=== PATIENT | female | born 1980 | race Caucasian/White ===

== ENCOUNTER → 2017-12-03 08:18 | Outpatient (REF) | payer OTHER, SELFPAY ==
[2017-12-03 18:23] LABS: Amphetamine/Metha Screen,Urine Negative ng/mL (<1000); Barbiturates Screen,Urine Negative ng/mL (<200); Benzodiazepines Screen,Urine Negative ng/mL (200); Cannabinoid Screen,Urine Positive ng/mL (<50); Cocaine Screen,Urine Negative ng/g (<300); Methadone Screen,Urine Negative ng/mL (<300); Opiate Screen,Urine Negative ng/mL (<300); Phencyclidine Screen,Urine Negative ng/mL (<25)
== END ==
LOC: LAB 08:18
PROVIDERS: Visit Provider Nurse Practitioner Family
DX: Z79.899 Other long term (current) drug therapy (principal)
CPT/HCPCS: 80305

== ENCOUNTER → 2018-03-10 15:18 | Outpatient (REF) | payer OTHER, SELFPAY ==
[2018-03-10 18:48] LABS: Amphetamine/Metha Screen,Urine Negative ng/mL (<1000); Barbiturates Screen,Urine Negative ng/mL (<200); Benzodiazepines Screen,Urine Negative ng/mL (<200); Cannabinoid Screen,Urine Negative ng/mL (<50); Cocaine Screen,Urine Negative ng/mL (<300); Methadone Screen,Urine Negative ng/mL (<300); Opiate Screen,Urine Negative ng/mL (<300); Phencyclidine Screen,Urine Negative ng/mL (<25)
== END ==
LOC: LAB 15:18
PROVIDERS: Visit Provider Nurse Practitioner Family
DX: Z79.899 Other long term (current) drug therapy (principal)
CPT/HCPCS: 80305

== ENCOUNTER → 2019-01-12 13:47 | Outpatient (CLI) | payer BC, OTHER, SELFPAY ==
[2019-01-12 14:38] LABS: Amphetamine/Metha Screen,Urine Negative ng/mL (<1000); Barbiturates Screen,Urine Negative ng/mL (<200); Benzodiazepines Screen,Urine Negative ng/mL (<200); Cannabinoid Screen,Urine Negative ng/mL (<50); Cocaine Screen,Urine Negative ng/mL (<300); Methadone Screen,Urine Negative ng/mL (<300); Opiate Screen,Urine Negative ng/mL (<300); Phencyclidine Screen,Urine Negative ng/mL (<25)
== END ==
PROVIDERS: Visit Provider Nurse Practitioner Family
DX: Z79.899 Other long term (current) drug therapy (principal)
CPT/HCPCS: 80305

== ENCOUNTER → 2019-07-06 13:40 | Outpatient (CLI) | payer BC, OTHER, SELFPAY ==
[2019-07-06 15:41] LABS: Amphetamine/Metha Screen,Urine Negative ng/mL (<1000); Barbiturates Screen,Urine Negative ng/mL (<200); Benzodiazepines Screen,Urine Negative ng/mL (<200); Cannabinoid Screen,Urine Negative ng/mL (<50); Cocaine Screen,Urine Negative ng/mL (<300); Methadone Screen,Urine Negative ng/mL (<300); Opiate Screen,Urine Negative ng/mL (<300); Phencyclidine Screen,Urine Negative ng/mL (<25)
== END ==
PROVIDERS: Visit Provider Nurse Practitioner Family
DX: Z79.899 Other long term (current) drug therapy (principal)
CPT/HCPCS: 80305

== ENCOUNTER → 2020-04-29 14:29 | Outpatient (CLI) | payer MEDICAID, SELFPAY ==
--- NOTE | 2020-04-29 14:30 | US_ITS ---
PROCEDURE: US TRANSVAGINAL CLINICAL INDICATION: US T/V- Menorrhagia COMPARISON: No exams were available for comparison FINDINGS: UTERUS: 8cm x 5cmx 5cm with a combined endometrial thickness of 8.1mm LEFT OVARY: [id number] with a volume of 3.7ml. RIGHT OVARY: [id number] with a volume of 10.4ml. The uterus is retroverted. There is a heterogeneous area of echogenicity in the fundus of the uterus at 2.4 x 1.8 by 2.9 cm suggesting a uterine fibroid. There is a 2 cm right ovarian cyst which appears simple. There are smaller bilateral ovarian follicles noted. Bilateral ovarian blood flow is present. Nabothian cysts noted. IMPRESSION: Retroverted uterus with 2.9 cm fibroid 2 cm right ovarian cyst Dictated by: Travis Clark MD 04/29/2020 17:43 Travis Clark MD in OV 04/29/2020 17:43
== END ==
PROVIDERS: Visit Provider Obstetrics & Gynecology
DX: N92.0 Excessive and frequent menstruation with regular cycle (principal)
CPT/HCPCS: 76830

== ENCOUNTER → 2020-06-22 07:16 | Outpatient (CLI) | payer MEDICAID, SELFPAY ==
[2020-06-22 07:48] LABS: Basophils % 0.5 % (0.1-2.0); Eosinophils # 0.2 K/mm3 (0.0-0.4); Eosinophils % 2.3 % (0.1-12.0); Hematocrit 41.9 % (37.0-47.0); Hemoglobin 13.7 g/dL (12.2-16.2); Lymphocytes # 2.9 K/mm3 (0.7-4.5); Lymphocytes % 32.8 % (10-50); Mean Corpuscular HGB Conc 32.7 g/dL (31.8-35.4); Mean Corpuscular Hemoglobin 29.4 pg (27.0-31.2); Mean Platelet Volume 10.1 fl (7.4-10.4); Monocytes # 0.4 K/mm3 (0.1-1.0); Monocytes % 4.3 % (1.7-9.3); Neutrophils # 5.3 K/mm3 (1.8-7.8); Neutrophils % 60.2 % (37.0-80.0); Platelet Count 195 K/mm3 (142-424); Red Blood Count 4.65 M/mm3 (4.20-5.40); Red Cell Distribution Width 14.2 % (11.5-17.5); White Blood Count 8.8 K/mm3 (4.8-10.8)
[2020-06-22 08:39] LABS: Chloride 106 mmol/L (98-107); Potassium 3.8 mmoL/L (3.5-5.1); Sodium 138 mmol/L (136-145)
[2020-06-22 08:42] LABS: Alanine Aminotransferase 15 U/L (12-78); Albumin/Globulin Ratio 1.7 (1.1-1.8); Alkaline Phosphatase 104 U/L (38-126); Anion Gap 11.8 mEq/L (5-15); Aspartate Amino Transferase 25 U/L (14-36); Bilirubin,Total 0.3 mg/dl (0.2-1.3); Blood Urea Nitrogen 3 mg/dl (7-17); Carbon Dioxide 24 mmol/L (22.0-30.0); Estimated Glomerular Filt Rate 137 ml/min (>60); GFR (African American) 166 ML/MIN (>60); Globulin 2.3 g/dL (1.3-3.2); Total Protein,Serum 6.3 g/dl (6.3-8.2)
[2020-06-22 08:43] LABS: Glucose 98 mg/dl (74-100)
[2020-06-22 08:58] LABS: HCG Qualitative, Serum Negative (Negative)
[2020-06-22 09:18] LABS: Coronavirus 19 IgG Antibody Positive (Negative); Coronavirus 19 IgM Antibody Negative (Negative)
== END ==
PROVIDERS: Visit Provider Obstetrics & Gynecology
DX: Z01.818 Encounter for other preprocedural examination (principal); Z03.818 Encounter for observation for suspected exposure to other biological agents ruled out; N92.0 Excessive and frequent menstruation with regular cycle; N94.6 Dysmenorrhea, unspecified; N93.8 Other specified abnormal uterine and vaginal bleeding; Z98.51 Tubal ligation status
CPT/HCPCS: 36415; 80053; 84703; 85025; 86328

== ENCOUNTER 2020-06-24 11:13 | Day surgery (SDC) | payer MEDICAID, SELFPAY ==
[2020-06-23 13:50] VITALS: BMI 22.2
[2020-06-24] VITALS (10 sets, daily range): BP systolic 100–119; BP diastolic 60–75; PULSE 55–72; RESP 16–18; TEMP 36.6–43; O2SAT 92–100
--- NOTE | 2020-06-24 14:42 | HMH.ANESCL ---
[facility] Anesthesia Checklist - Patient Identification Patient Identification: Arm Band - Structural Data Admitted From: Home Planned Operative Procedure/s: Hysteroscopy, D&C novasure ablation Consent for Planned Operative Procedure(s) Verified: Yes Verified Documents: Surgical Consent, History and Physical - NPO Status Verified Time NPO: 00:00 - Additional verifications Anesthesia Reactions: No Hx Blood Transfusions: No Blood Transfusion Reaction: No - Airway Assessment C-Spine Mobility Assessed: Yes (mp2) TMJ Mobility Assessed: Yes Dentition: Good Dentition - Neurological Assessment Level of Consciousness: Awake, Alert - Anesthesia Plan Anesthesia Risk discussed: Yes Anesthesia Plan: Verified ASA Class: II Anesthesia Type: General [facility] History I have reviewed the patient's past medical history: Yes Medical History: Reports:: Depression Denies:: Cancer, Diabetes Mellitus Type 1, Diabetes Mellitus Type 2, Internal Pacemaker, MRSA, Seizures *Have you ever received a pneumonia vaccine?: No *Have you received a flu vaccine this season?: Yes Other Medical History: Reports: Arthritis, Other. Denies: Blood Transfusion Reaction Anesthesia experience/problems:: nac Other Surgeries: Yes: Tubal Ligation, Other. No: Pacemaker Amputation: No Fractures: Yes - *Social History Smoking Status: Current every day smoker Tobacco Type: cigarettes # Packs/Day (cigarettes): 1 Alcohol Intake: never Substance Use Type: opiates, former substance user *Occupational Status:: employed Housing: house Household Members: children *Travel in the last 8 weeks: None - Psychiatric History Pschychiatric History:: Reports:: Depression Family Hx:: No significant family history
--- NOTE | 2020-06-24 15:30 | HMH.ANESI ---
[facility] Anesthesia Record Part I Intake, IV Amount: 1,000 Estimated blood loss (mL): 25 Urine output (mL): 150 Blood Pressure: 111/65 SaO2: 100 Pulse Rate: 72 Respiratory Rate: 16 Temperature: 98.1 F Patient is:: Drowsy, Stable Stable to PACU at:: 15:20
--- NOTE | 2020-06-24 16:54 | P.OP_ITS ---
Date of procedure: 06/24/20 Pre-op Diagnosis:: Heavy menstrual bleeding, dysfunctional uterine bleeding, severe dysmenorrhea Post-op Diagnosis:: same Procedure performed:: D & C Hysteroscopy Novasure Endometrial Ablation Surgeon:: Katie Cochran MD MANAGER PRIVATE:: Zane Pichardo Anesthesia: GETA Estimated blood loss (mL): 10 Operative findings:: grossly normal uterine cavity Operative note:: The patient was taken to the OR where general anesthesia was administered without difficulty. She was prepped/draped in the normal sterile fashion in supine position. The cervix was dilated until hysteroscope could be accomodated. The hysteroscope was introduced through the cervix into the uterus and the cavity surveyed. No fibroids or polyps were observed within the cavity; sharp curettage was performed and the specimen sent for pathology. The Novasure device was introduced into the uterus. The cavity length was measured at 5cm and width at 4.5cm, and the cavity assessment was successful. The Novasure was deployed and the endometrial ablation was completed in 69 seconds, and without complication. All instruments were removed from her vagina, she was awakened from anesthesia and taken to PACU in stable condition. Condition: stable Disposition: PACU Specimens:: endometrial curettings Complications:: none
[2020-07-01 14:07] VITALS: BP 106/70; PULSE 66; TEMP 36.6
--- NOTE | 2020-07-01 14:07 | P.PN_ITS ---
[facility] Anesthesia Record Part II Discharge Time: 15:50 Destination: [facility] PACU nurse assessment reviewed?: Yes Patient Condition:: Good Anesthesia Complications:: None Swallowing reflex intact?: Yes Cyanosis?: No Blood Pressure: 106/70 Pulse Rate: 66 Temperature: 97.9 F Mental Status: Alert & Oriented Pain level:: 0 Nausea and/or vomitting:: None Intake, IV Amount: 1,200
== END 2020-06-24 16:21 | disposition home or self-care (01) ==
LOC: OR 11:25
PROVIDERS: PCP Emergency Medicine; Visit Provider Obstetrics & Gynecology
PROC: 0U5B8ZZ Destruction of Endometrium, Via Natural or Artificial Opening Endoscopic (ICD-10-PCS; CPT 58563; principal; 2020-06-24 13:00)
DX: N94.6 Dysmenorrhea, unspecified (principal); N93.8 Other specified abnormal uterine and vaginal bleeding; Z98.51 Tubal ligation status; F32.9 Major depressive disorder, single episode, unspecified; M19.90 Unspecified osteoarthritis, unspecified site; Z72.0 Tobacco use; F19.11 Other psychoactive substance abuse, in remission
CPT/HCPCS: 58563; 96374; J2405

== ENCOUNTER → 2021-04-24 11:07 | Outpatient (CLI) | payer BC, MEDICAID, SELFPAY | PROVIDERS: PCP Emergency Medicine; Visit Provider Nurse Practitioner | DX: Z20.822 Contact with and (suspected) exposure to COVID-19 (principal) | CPT/HCPCS: C9803; U0003; U0005 ==

== ENCOUNTER → 2021-07-27 10:55 | Outpatient (CLI) | payer BC, MEDICAID, SELFPAY | PROVIDERS: Visit Provider Nurse Practitioner | DX: U07.1 COVID-19 (principal) | CPT/HCPCS: C9803; U0003; U0005 ==

== ENCOUNTER 2024-11-19 15:14 | Outpatient (CLI) | payer MEDICAID, SELFPAY ==
[2024-11-19 18:51] LABS: Basophils # 0.1 K/mm3 (0-0.2); Basophils % 0.7 % (0.1-2.0); Eosinophils # 0.2 Kmm3 (0.0-0.4); Eosinophils % 2.5 % (0.1-12.0); Hematocrit 39.7 % (37.0-47.0); Hemoglobin 13.5 g/dL (12.2-16.2); Immature Granulocytes # 0.01 10^3uL; Immature Granulocytes % 0.1 %; Lymphocytes # 1.9 K/mm3 (0.7-4.5); Lymphocytes % 25.9 % (10-50); Mean Corpuscular Hemoglobin 32.6 pg (27.0-31.2); Mean Corpuscular Volume 95.9 fl (81-99); Mean Platelet Volume 11.4 fl (7.4-10.4); Monocytes # 0.4 K/mm3 (0.1-1.0); Monocytes % 5.7 % (1.7-9.3); Neutrophils # 4.8 K/mm3 (1.8-7.8); Neutrophils % 65.1 % (37.0-80.0); Nucleated Red Blood Cells # 0 10^3/uL; Nucleated Red Blood Cells % 0 %; Platelet Count 221 K/mm3 (142-424); Red Blood Count 4.14 M/mm3 (4.20-5.40); Red Cell Distribution Width 13.4 % (11.5-17.5); Red Cell Distribution Width-SD 47.6 fL; White Blood Count 7.3 K/mm3 (4.8-10.8)
[2024-11-19 19:23] LABS: Alanine Aminotransferase 13 U/L (12-78); Albumin Level 3.9 g/dl (3.5-5.0); Albumin/Globulin Ratio 1.9 (1.1-1.8); Alkaline Phosphatase 114 U/L (38-126); Anion Gap 3.5 mEq/L (5-15); Aspartate Amino Transferase 24 U/L (14-36); Bilirubin,Total 0.4 mg/dl (0.2-1.3); Blood Urea Nitrogen 6 mg/dl (7-17); Calcium 8.8 mg/dl (8.4-10.2); Carbon Dioxide 31 mmol/L (22.0-30.0); Chloride 105 mmol/L (98-107); Estimated Glomerular Filt Rate 109 ml/min (>60); GFR (African American) 132 ML/MIN (>60); Globulin 2.1 g/dL (1.3-3.2); Glucose 83 mg/dl (74-100); Potassium 3.5 mmoL/L (3.5-5.1); Sodium 136 mmol/L (136-145)
== END 2024-11-19 23:59 | disposition home or self-care (01) ==
LOC: LAB.DROPOF 11-20 13:16
PROVIDERS: PCP Family Medicine; Visit Provider Family Medicine
DX: M06.041 Rheumatoid arthritis without rheumatoid factor, right hand (principal)
CPT/HCPCS: 80053; 85025

== ENCOUNTER 2025-05-05 15:34 | Outpatient (CLI) | payer MEDICAID, SELFPAY ==
--- OUTSIDE RECORDS SUMMARY | 2025-05-05 15:40 | XMS_ITS | Clinical Summary ---
[facility] [address] [place] [address] Care Team Providers Care Web Mobile Designer Name Role Phone Randa Garza MD Primary Care Provider [phone] Allergies No known active allergies Medications Zubsolv 5.7-1.4 MG sublingual tablet 12/19/2022 A ctive escitalopram (LEXAPRO) 20 MG tablet 12/13/2022 Active hydrOXYzine (ATARAX) 25 MG tablet 12/13/2022 Active promethazine (PHENERGAN) 25 MG tablet 09/17/2022 Active methotrexate 2.5 MG tablet 12/14/2022 Active gabapentin (NEURONTIN) 600 MG tablet 12/17/2022 Active ibuprofen (ADVIL,MOTRIN) 600 MG tablet 12/16/2022 Active Active Problems Problem Noted Date Diagnosed Date Left elbow pain 01/11/2023 DJD (degenerative joint disease) 01/11/2023 Rheumatoid arthritis involvi ng multiple sites with positive rheumatoid factor 01/11/2023 Social History Tobacco Use Types Packs/Day Years Used Date Smoking Tobacco: Every Day Cigarettes 1 15 Electronic Cigarette Star marjorie: 2020 Smokeless Tobacco: Never Tobacco Cessation:Ready to Q uit: Not Asked; Counseling Given: Not Answered Abuse Screen Answer Date Recorded Unsafe at Home or Work/School Not on file Feels Threatened by Someone? Not on file 03/2023 Does Anyone Keep You from Co ntacting Others or Doint Things Outside the Home? Not on file 04/22/2023 Physical Sign of Abuse Present Not on file 1 Housing Stability Answer Date Recorded Current Living Arrangements Not on file 10/0 03/2023 Potentially Unsafe Housing Conditions Not on cristal e 04/22/2023 Family and Community Support Answer Kofi e Recorded Help with Day-to-Day Activities Not on file 04/22/2023 Lonely or Isolated Not on file 04/22/2023 Employment Answer Date Recorded Do you want help finding or keeping work or a ghanshyam b? Not on file 04/22/2023 Disabilities Answer Date Recorded Concentrating, Remembering, or Making Decisions Difficulty Not on file 04/22/2023 Doing Errands Independently Difficulty Not on fi le 04/22/2023 Education Answer Date Recorded Help with school or training? Not on file Preferred Language Not on file 04/22/2023 Comments No Sex and Gender Information Value Date Recorded Sex Assigned at Not on file Legal Sex Female 8:27 PM EDT Gender Identity Not on file Sexual Orientation Not on file Last Filed Vital Signs Vital Sign Reading Time Taken Comments Blood Pressure 116/82 01/11/2023 9:59 AM EDT Pulse - - Temperature - - Respiratory Rate - - Oxygen Saturation - - Inhaled Oxygen Concentration - - Weight 56.2 kg (124 lb) 01/11/2023 9:59 AM EDT Height 156.2 cm (5' 1.5 ) 01/11/2023 9:59 AM EDT Body Mass Index 23.05 01/11/2023 9:59 AM EDT Plan of Treatment Health Maintenance Due Date Last Done Comments Annual Gynecologic Pelvic and Breast Exam 1981 Pneumococcal Vaccine 0-49 (1 of 2 - PCV) 2000 PAP SMEAR 2002 TDAP/TD VACCINES (2 - Tdap) 09/18/2006 09/18/1996 MAMMOGRAM 2021 ANNUAL WELLNESS VISIT 01/11/2023 HEPATITIS C SCREENING 01/11/2023 INFLUENZA VACCINE 02/12/2025 04/08/2021 Insurance [employer] MEDICARE ADV [employer]ARE MEDICAID [facility] Care Teams Web Mobile Designer Relationship Specialty Start Date End Date Randa Garza MD [address] [facility] [address] [place] [address] PCP - General Emergency Medicine 01/11/23
--- OUTSIDE RECORDS SUMMARY | 2025-05-05 15:40 | XMS_ITS | Clinical Summary ---
Author Organization Healthcare Address [address] [place] [address] Care Team Providers Care Electric Arc Furnace Operator Name Role Phone Belen Andrew APRN Primary Care Provider [phone] Social History Tobacco Use Types Packs/Day Years Used Date Smoking Tobacco: Every Day Alcohol Use Standard Drinks/Week Comments Not Currently 0 (1 standard drink = 0.6 oz pure alcohol) Alcoholic Drinks/day: History of alcohol use Comments Unknown Sex and Gender Information Value Date Recorded Sex Assigned at Not on file Legal Sex Female 8:17 PM EDT Gender Identity Not on file Sexual Orientation Not on file Last Filed Vital Signs Vital Sign Reading Time Taken Comments Blood Pressure 100/64 09/03/2017 9:58 AM EST Pulse 50 09/03/2017 9:58 AM EST Temperature 36.7 C (98 F) 09/03/2017 9:58 AM EST Respiratory Rate 12 09/03/2017 9:58 AM EST Oxygen Saturation - - Inhaled Oxygen Concentration - - Weight 45 kg (99 lb 4 oz) 09/03/2017 9:58 AM EST Height 149.9 cm (4' 11 ) 09/03/2017 9:58 AM EST Body Mass Index 20.05 09/03/2017 9:58 AM EST Plan of Treatment Not on file Care Teams Electric Arc Furnace Operator Relationship Specialty Start Date End Date Belen Andrew APRN [address] [facility] [place] [address] PCP - General 11/25/20
--- NOTE | 2025-05-05 16:00 | MM_ITS ---
PROCEDURE INFORMATION: Exam: MG Bilateral Screening 3D Mammography Exam date and time: 05/05/2025 3:52 PM Age: 45 years old Clinical indication: Screening exam TECHNIQUE: Imaging protocol: Bilateral Screening tomosynthesis and 2D mammography including computer-aided detection (CAD) when performed. COMPARISON: No relevant prior studies available. FINDINGS: MAMMOGRAPHY: Breast composition: The breasts are heterogeneously dense, which may obscure small masses. Mass: 2.2 cm questioned mass right breast 12 o'clock middle depth. Architectural distortion: None. Calcifications: Calcifications in the left breast at roughly 12 o'clock and in the upper-outer quadrant middle to posterior depth. Asymmetric density: None. Skin thickening: None. Axillary adenopathy: None. IMPRESSION: 1. Questioned right breast mass. Recommend right breast diagnostic mammogram including spot compression views of the right breast in the CC and MLO projections, a full 90 degree lateral view, and right breast ultrasound for further evaluation. 2. Left breast calcifications.Recommend left breast diagnostic mammogram including spot magnification views of the left breast in the CC and ML projections for further evaluation. ASSESSMENT: BI-RADS Category 0: Incomplete- Need Additional Imaging Evaluation.
== END 2025-05-05 23:59 | disposition home or self-care (01) ==
LOC: RAD 15:34
PROVIDERS: PCP Emergency Medicine; Visit Provider Nurse Practitioner Obstetrics & Gynecology
DX: Z12.31 Encounter for screening mammogram for malignant neoplasm of breast (principal); R92.333 Mammographic heterogeneous density, bilateral breasts; R92.1 Mammographic calcification found on diagnostic imaging of breast; R92.8 Other abnormal and inconclusive findings on diagnostic imaging of breast
CPT/HCPCS: 77063; 77067

== ENCOUNTER 2025-06-09 14:47 | Outpatient (CLI) | payer MEDICAID, SELFPAY ==
--- OUTSIDE RECORDS SUMMARY | 2025-06-09 14:49 | XMS_ITS | Clinical Summary ---
[facility] [address] [place] [address] Care Team Providers Care Store Clerk Checker Name Role Phone Randa Garza MD Primary Care Provider [phone] Allergies No known active allergies Medications Zubsolv [...] HEALTH CARE OPTIONS MEDICARE ADV [employer]CARE MEDICAID [facility] Care Teams Store Clerk Checker Relationship Specialty Start Date End Date Randa Garza MD [address] [facility] [address] [place] [address] PCP - General Emergency Medicine 01/11/23
--- OUTSIDE RECORDS SUMMARY | 2025-06-09 14:49 | XMS_ITS | Clinical Summary ---
Author Organization Healthcare Address [address] [place] [address] Care Team Providers Care Generation Technician Name Role Phone Belen Andrew APRN Primary Care Provider [phone] Social History Tobacco Use Types Packs/Day Years [...] of Treatment Not on file Care Teams Generation Technician Relationship Specialty Start Date End Date Belen Andrew APRN [address] [facility] [place] [address] PCP - General 11/25/20
--- NOTE | 2025-06-09 15:00 | MM_ITS ---
PROCEDURE INFORMATION: Exam: MG Bilateral Diagnostic Breast Tomosynthesis Exam date and time: 06/09/2025 2:50 PM Age: 45 years old Clinical indication: Callback for a right breast mass and left breast calcifications. TECHNIQUE: Imaging protocol: Bilateral Diagnostic tomosynthesis and 2D mammography including computer-aided detection (CAD) when performed. Unilateral or bilateral exam. COMPARISON: MG MM DIG SCREENING MAMM BI W/CAD 05/05/2025 3:52 PM FINDINGS: MAMMOGRAPHY: Breast composition: The breasts are heterogeneously dense, which may obscure small masses. Breast mammogram findings: In the right breast 12 o'clock axis, there is dense heterogeneous fibroglandular tissue. No definite mass is seen mammographically however further evaluation of ultrasound in this region is necessary to complete evaluation. In the left breast, there are multiple similar loosely grouped areas of microcalcifications, with the most dominant grouping in the 3 o'clock region at posterior depth, 9 cm from the nipple. Stereotactic biopsy for tissue sampling is recommended. No suspicious distortion or mass. IMPRESSION: 1. Left breast calcifications at 3 o'clock are indeterminate. Stereotactic biopsy is recommended. 2. In the right breast, ultrasound is necessary to complete evaluation for a questioned mass at 12 o'clock. ASSESSMENT: BI-RADS Category 4: Suspicious.
== END 2025-06-09 23:59 | disposition home or self-care (01) ==
LOC: RAD 14:48
PROVIDERS: PCP Emergency Medicine; Visit Provider Nurse Practitioner Obstetrics & Gynecology
DX: N63.15 Unspecified lump in the right breast, overlapping quadrants (principal); R92.1 Mammographic calcification found on diagnostic imaging of breast; R92.333 Mammographic heterogeneous density, bilateral breasts
CPT/HCPCS: 77062; 77066; G0279

== ENCOUNTER 2025-07-12 07:39 | Outpatient (CLI) | payer OTHER, SELFPAY ==
--- OUTSIDE RECORDS SUMMARY | 2025-07-12 07:41 | XMS_ITS | Clinical Summary ---
[facility] [address] [place] [address] Care Team Providers Care Composition Stone Applicator Name Role Phone Randa Gazra MD Primary Care Provider [phone] Allergies No known active allergies Medications Zubsolv [...] Annual Gynecologic Pelvic and Breast Exam 1981 TDAP/TD VACCINES (2 - Tdap) 09/19/1996 09/18/1996 Pneumococcal Vaccine 0-49 (1 of 2 - PCV) 2000 PAP SMEAR 2002 MAMMOGRAM 2021 ANNUAL WELLNESS VISIT 01/11/2023 HEPATITIS C SCREENING 01/11/2023 INFLUENZA VACCINE 02/12/2025 04/08/2021 Insurance [employer] MEDICARE ADV [employer]ARE MEDICAID [facility] Care Teams Composition Stone Applicator Relationship Specialty Start Date End Date Randa Garza MD [address] [facility] [address] [place] [address] PCP - General Emergency Medicine 01/11/23
--- OUTSIDE RECORDS SUMMARY | 2025-07-12 07:41 | XMS_ITS | Clinical Summary ---
Author Organization Healthcare Address [address] [place] [address] Care Team Providers Care Cancer Genetic Counselor Name Role Phone Belen Andrew APRN Primary Care Provider [phone] Social History Tobacco Use Types Packs/Day Years [...] of Treatment Not on file Care Teams Cancer Genetic Counselor Relationship Specialty Start Date End Date Belen Andrew APRN [address] [facility] [place] [address] PCP - General 11/25/20
--- NOTE | 2025-07-12 08:00 | US_ITS ---
PROCEDURE INFORMATION: Exam: US Right Breast, Complete Exam date and time: 07/12/2025 8:26 AM Age: 45 years old Clinical indication: Questionable right 12 o'clock axis mass TECHNIQUE: Imaging protocol: Complete ultrasound of all four quadrants of the right breast and the retroareolar regions, including ultrasound of the axilla when performed. COMPARISON: MG MM DIG MAMM BI DX W/CAD 06/09/2025 2:50 PM FINDINGS: ULTRASOUND: Breast ultrasound findings: Sonographic images of the RIGHT breast including the retroareolar region, all 4 quadrants and the axilla do not demonstrate any solid or cystic masses. No architectural distortion or acoustical shadowing. No skin thickening or axillary adenopathy. IMPRESSION: No sonographic evidence of malignancy. Stereotactic core biopsy was recommended for left breast calcifications seen on mammogram dated 06/09/2025 ASSESSMENT: BI-RADS Category 1: Negative. Based on this sonogram
[2025-07-12] MEDS: HYDROCODONE/APAP 5/325 MG TABLET 1 TAB PO (08:45)
--- NOTE | 2025-07-12 08:45 | MM_ITS ---
FINAL REPORT CLINICAL HISTORY: CLIP PLACEMENT S/P BIOPSY FINDINGS: MAMMOGRAM LEFT TECHNIQUE: Standard digital 2-D views COMPARISON: 05/05/2025 and 06/09/2025 DENSITY: There are scattered areas of fibroglandular density FINDINGS: Post biopsy marker clip is noted to be in satisfactory position. Postbiopsy changes are noted. Calcifications are significant a reduced in number reflecting sampling associated with the procedure. IMPRESSION: Biopsy marker clip in good position ASSESSMENT: A post-procedure mammogram is used to confirm the position and deployment of a breast tissue marker after a biopsy RECOMMENDATION: 6 month mammographic follow-up given findings of benign fibrocystic proliferative changes without atypia or carcinoma. Authenticated and ERN
--- NOTE | 2025-07-12 08:46 | MM_ITS ---
FINAL REPORT CLINICAL HISTORY: SPECIMEN PIC FINDINGS: Specimen radiograph of multiple core samples show calcifications of interest contained within numerous samples reflecting satisfactory sampling Authenticated and ERN
--- NOTE | 2025-07-12 09:00 | MM_ITS ---
FINAL REPORT CLINICAL HISTORY: LEFT BREAST CALCS FINDINGS: STEREOTACTIC GUIDED LEFT BREAST BIOPSY, CLIP PLACEMENT, SPECIMEN RADIOGRAPH AND POST BIOPSY MAMMOGRAM Indication: Suspicious calcifications Findings: The stereotactic guided breast biopsy procedure was explained in detail to the patient including potential risk and benefits. The patient voiced an understanding of the procedure, was given an opportunity to ask questions, after which informed consent was obtained. Calcifications of interest were localized. An inferior to superior approach was utilized. The patient was positioned upon the stereotactic unit in the prone position. The breast was prepped in the usual sterile fashion. Subcutaneous soft tissues were anesthetized with lidocaine with epinephrine. Subsequently, with intermittent stereotactic guidance, the stereotactic biopsy needle was advanced into the breast in the region of the mammographic abnormality corresponding to recent diagnostic mammogram. Multiple vacuum assisted core samples were obtained. Sampling was thought to be adequate and the biopsy clip marker was deployed in the region of biopsy. Additional imaging as detailed below was performed. Specimen radiograph: Calcifications confirmed adequate Post procedure routine CC and MLO view mammogram: Post biopsy changes. Biopsy marker clip noted to be in the appropriate location. Patient tolerated the procedure well. No immediatecomplications. IMPRESSION: 1. Technically successful stereotactic guided biopsy of left breast calcifications 2. Biopsy marker clip deployed 3. Post biopsy mammogram obtained as above Histopathology results reveal proliferative fibrocystic changes without atypical hyperplasia or carcinoma. Pathology is concordant with mammographic findings. Recommend 6 month mammographic follow-up as routine benign postbiopsy surveillance. Authenticated and ERN
[2025-07-12] MEDS: LIDOCAINE 1% W/EPI 1:100,000 20ML VIAL IJ (10:13)
[2025-07-12] MEDS: RAD-SODIUM CHLORIDE 0.9% 250ML BAG 100 ML IV (10:13)
== END 2025-07-12 23:59 | disposition home or self-care (01) ==
LOC: RAD 07:39
PROVIDERS: PCP Emergency Medicine; Visit Provider Nurse Practitioner Obstetrics & Gynecology
DX: N60.12 Diffuse cystic mastopathy of left breast (principal); N63.10 Unspecified lump in the right breast, unspecified quadrant; R92.8 Other abnormal and inconclusive findings on diagnostic imaging of breast
CPT/HCPCS: 19081; 76098; 76641; 77065; J2004; J7050